=== PATIENT | female | born 1970 | race Caucasian/White ===

== ENCOUNTER → 2019-11-20 | Outpatient (CLI) | payer OTHER ==
--- NOTE | 2019-11-20 14:08 | Diagnostic Imaging Report ---
MRI SPINE LUMBAR WO HISTORY: Lumbar strain COMPARISON: None. TECHNIQUE: Sagittal T1, sagittal T2, sagittal STIR, axial T2, coronal T2, and axial proton density weighted images of the lumbar spine were obtained without contrast. DISCUSSION: Number of non-rib bearing lumbar vertebral bodies: 5. Alignment: Normal lordosis. No scoliosis. Vertebrae: No fractures, infection or neoplasm. Conus medullaris: Normal, ends at L1. Cauda equina: No masses or arachnoiditis. Posterior paraspinal muscles: Well preserved. No signal abnormalities. Soft tissues: Indeterminate partially imaged, approximately 2.6 cm T2 hyperintense lesion in the right adnexum. Mild lower lumbar disc degeneration is present with posterior annular fissure at L4-L5. T12-L1: Patent canal and foramina. L1-L2: Patent canal and foramina. L2-L3: Patent canal and foramina. L3-L4: Mild canal stenosis due to disc bulge, small central disc protrusion, and ligamentum flavum thickening. Mild left foraminal stenosis due to asymmetry of the disc bulge and facet arthrosis. No significant right foraminal stenosis. L4-L5: Mild canal stenosis due to disc bulge and ligamentum flavum thickening. Mild bilateral foraminal stenoses due to disc bulge and facet arthrosis. L5-S1: Grade 1 anterolisthesis of L5 on S1 due to prominent bilateral facet arthrosis, left greater than right. There is mild periarticular edema along the facet joints, also left greater then right. Mild canal stenosis due to uncovered disc bulge and ligamentum flavum thickening. Mild bilateral foraminal stenoses due to uncovered disc bulge and facet arthrosis. IMPRESSION: 1. Mild lower lumbar disc degeneration with posterior annular fissure at L4-L5. 2. Grade 1 anterolisthesis of L5 on S1 due to facet arthrosis. Suspected bilateral L5-S1 facet synovitis, left greater than right. 3. Mild degenerative canal stenosis from L3-L4 to L5-S1. 4. Mild left L3-L4, bilateral L4-L5, and bilateral L5-S1 degenerative foraminal stenoses. 5. Indeterminate partially imaged 2.7 cm T2 hyperintense lesion in the right adnexum can be further evaluated with pelvic ultrasound. Signed by: Dr. Sujit Mena M.D. on 11/20/2019 2:04 PM
== END ==
LOC: MRI 12:49
PROVIDERS: ATTEND Family Medicine
DX: S39.012D Strain of muscle, fascia and tendon of lower back, subsequent encounter (principal); R29.898 Other symptoms and signs involving the musculoskeletal system
CPT/HCPCS: 72148

== ENCOUNTER 2019-12-16 12:49 | Outpatient (RCR) | payer OTHER | END 2020-01-12 | LOC: PT 12:49 | PROVIDERS: ATTEND Neurological Surgery | DX: M43.17 Spondylolisthesis, lumbosacral region (principal) ==